=== PATIENT | female | born 1985 | race Two or more races ===

== ENCOUNTER 2023-03-28 10:49 | Day surgery (SDC) | payer OTHER ==
[~2023-03-28 10:49] MED LIST: CYANOCOBALAMIN (VITAMIN B-12) 1000 MCG/1 ML VIAL IM ONE; IRON SUCROSE INJECTION 200 MG in SODIUM CHLORIDE 100 ML IVPB ONE
[2023-03-28 17:16] VITALS: RESP 18; TEMP 98.1
[2023-03-29 07:51] VITALS: BP 118/74; PULSE 76
== END 2023-03-28 12:00 | disposition home or self-care (01) ==
LOC: JONCCHEMO 10:49 → J7W 10:55 → JONCCHEMO 12:00
PROVIDERS: ATTEND Internal Medicine Hematology & Oncology
PROC: 3E033GC Introduction of Other Therapeutic Substance into Peripheral Vein, Percutaneous Approach (ICD-10-PCS; principal; 2023-03-28)
DX: E61.1 Iron deficiency (principal); E53.8 Deficiency of other specified B group vitamins
CPT/HCPCS: 96365; J1756

== ENCOUNTER 2023-04-11 11:37 | Day surgery (SDC) | payer OTHER ==
[~2023-04-11 11:37] MED LIST changes: -CYANOCOBALAMIN (VITAMIN B-12) 1000 MCG/1 ML VIAL IM ONE
[2023-04-11 16:34] VITALS: BP 123/75; PULSE 70; RESP 20; TEMP 98.2
== END 2023-04-11 13:55 | disposition home or self-care (01) ==
LOC: JONCNONCHE 11:37 → J7W 11:37 → JONCNONCHE 13:55
PROVIDERS: ATTEND Internal Medicine Hematology & Oncology
PROC: 3E033GC Introduction of Other Therapeutic Substance into Peripheral Vein, Percutaneous Approach (ICD-10-PCS; principal; 2023-04-11)
DX: D50.9 Iron deficiency anemia, unspecified (principal); D51.8 Other vitamin B12 deficiency anemias
CPT/HCPCS: 96365; J1756

== ENCOUNTER 2023-04-18 11:47 | Day surgery (SDC) | payer OTHER ==
[2023-04-18 17:47] VITALS: RESP 16; TEMP 98
[2023-04-18 17:51] VITALS: BP 106/69; PULSE 77
== END 2023-04-18 13:00 | disposition home or self-care (01) ==
LOC: JONCNONCHE 11:47 → J7W 11:53 → JONCNONCHE 13:00
PROVIDERS: ATTEND Internal Medicine Hematology & Oncology
PROC: 3E033GC Introduction of Other Therapeutic Substance into Peripheral Vein, Percutaneous Approach (ICD-10-PCS; principal; 2023-04-18)
DX: D50.9 Iron deficiency anemia, unspecified (principal)
CPT/HCPCS: 96365; J1756

== ENCOUNTER 2023-04-25 11:27 | Day surgery (SDC) | payer OTHER ==
[~2023-04-25 11:27] MED LIST changes: +IRON SUCROSE COMPLEX 200 MG in SODIUM CHLORIDE 100 ML IVPB ONE; -IRON SUCROSE INJECTION 200 MG in SODIUM CHLORIDE 100 ML IVPB ONE
[2023-04-25] MEDS ORDERED: IRON SUCROSE COMPLEX 200 MG in SODIUM CHLORIDE 100 ML IVPB ONE (11:45)
[2023-04-25] MEDS ORDERED: CYANOCOBALAMIN (VITAMIN B-12) 1000 MCG/1 ML VIAL IM ONE (13:00)
[2023-04-25 17:01] VITALS: BP 129/82; PULSE 78; RESP 18; TEMP 98.1
== END 2023-04-25 13:35 | disposition home or self-care (01) ==
LOC: JONCNONCHE 11:27 → J7W 13:10 → JONCNONCHE 13:35
PROVIDERS: ATTEND Internal Medicine Hematology & Oncology
PROC: 3E033GC Introduction of Other Therapeutic Substance into Peripheral Vein, Percutaneous Approach (ICD-10-PCS; principal; 2023-04-25)
DX: D50.9 Iron deficiency anemia, unspecified (principal)
CPT/HCPCS: 96365

== ENCOUNTER 2024-06-11 02:00 | Day surgery (SDC) | payer OTHER ==
[2024-06-11] MEDS ORDERED: FERRIC CARBOXYMALTOSE 750 MG in SODIUM CHLORIDE 250 ML IVPB ONE (10:00)
[2024-06-11] MEDS: IRON SUCROSE INJECTION 200 MG in SODIUM CHLORIDE 100 ML IVPB ONE (14:15)
[2024-06-11 15:20] VITALS: RESP 16; TEMP 98.3
[2024-06-11 15:24] VITALS: BP 135/84; PULSE 85
== END 2024-06-11 15:15 | disposition home or self-care (01) ==
LOC: JONCNONCHE 02:00 → J7W 14:14 → JONCNONCHE 15:15
PROVIDERS: ATTEND Nurse Practitioner Family
PROC: 3E033GC Introduction of Other Therapeutic Substance into Peripheral Vein, Percutaneous Approach (ICD-10-PCS; principal; 2024-06-11)
DX: D50.9 Iron deficiency anemia, unspecified (principal)
CPT/HCPCS: 96365; J1756

== ENCOUNTER 2024-06-18 16:15 | Day surgery (SDC) | payer OTHER ==
[2024-06-18] MEDS: IRON SUCROSE INJECTION 200 MG in SODIUM CHLORIDE 100 ML IVPB ONE (16:23)
[2024-06-18 16:33] VITALS: TEMP 98.2
[2024-06-18 17:08] VITALS: BP 124/64; PULSE 73; RESP 18
== END 2024-06-18 17:25 | disposition home or self-care (01) ==
LOC: JONCCHEMO 16:15
PROVIDERS: ATTEND Nurse Practitioner Family
PROC: 3E033GC Introduction of Other Therapeutic Substance into Peripheral Vein, Percutaneous Approach (ICD-10-PCS; principal; 2024-06-18)
DX: D50.9 Iron deficiency anemia, unspecified (principal)
CPT/HCPCS: 96365; J1756